=== PATIENT | male | born 1970 | race African-American/Black ===

== ENCOUNTER → 2024-10-17 | Day surgery (SDC) | payer BC ==
[~2024-10-17] MED LIST: ACETAMINOPHEN 1000 MG/100 ML 100 ML IV ONE; ACETAMINOPHEN/CODEINE 300MG - 30MG TAB ONE; D3-5000125 MCG; DEXAMETHASONE SOD PHOS INJ 4 MG/ML SDV ONE; FENTANYL CITRATE/PF 100MCG/2 ML INJ ONE; LABETALOL HCL100 MG PO; LIDOCAINE HCL 2% LOCAL INJ 5 ML SDV VIAL INJ ONE; MIDAZOLAM HCL 2 MG/2 ML VIAL ONE; MOUNJARO7.5 MG/0.5; ONDANSETRON HCL INJ 2MG/ML 2ML 2 MG/ML VIAL ONE; PROPOFOL IV EMULSION 10 MG/ML 20 ML VIAL ONE; ROCURONIUM BROMIDE 1 ML IV ONE; SUGAMMADEX SODIUM 200 MG/2 ML VIAL IV ONE
[2024-10-17] MEDS: LACTATED RINGER'S 1,000 ML ONE (08:37)
[2024-10-17] MEDS: FENTANYL CITRATE/PF 100MCG/2 ML INJ ONE (08:55)
[2024-10-17] MEDS: ACETAMINOPHEN/CODEINE 300MG - 30MG TAB PO ONE (09:40)
[2024-10-17 09:50] VITALS: BP 144/92; PULSE 65; RESP 18; O2SAT 97
== END | disposition home or self-care (01) ==
LOC: OR 05:37
PROVIDERS: ATTEND Otolaryngology Otolaryngology/Facial Plastic Surgery
DX: J34.89 Other specified disorders of nose and nasal sinuses (principal); J34.2 Deviated nasal septum; J32.9 Chronic sinusitis, unspecified; I10 Essential (primary) hypertension; Z01.810 Encounter for preprocedural cardiovascular examination; Z79.85 Long-term (current) use of injectable non-insulin antidiabetic drugs; Z79.899 Other long term (current) drug therapy
CPT/HCPCS: 30520; 36415; 82948; 88304; 88311; 93005; J0131; J1100; J2003; J2250; J2405; J2704; J3010; J7121; 88300